=== PATIENT | male | born 1980 | race Caucasian/White ===

== ENCOUNTER 2020-02-10 10:39 | Inpatient (IN) | payer OTHER ==
[2020-02-10 11:13] VITALS: BMI 32.3
[2020-02-10] MEDS ORDERED: MENTHOL/PHENOL 1 EACH UD MM PRN (12:21)
[2020-02-10] MEDS ORDERED: MAG HYDROX/AL HYDROX/SIMETH 30 ML UNIT-DOSE CUP PO PRN (12:21)
[2020-02-10] MEDS ORDERED: ACETAMINOPHEN 325 MG TABLET (FP) PO PRN ×2 (12:21)
[2020-02-10] MEDS ORDERED: BISMUTH SUBSALICYLATE 262 MG/15 ML BTL PO PRN (12:21)
[2020-02-10] MEDS ORDERED: METHOCARBAMOL 500 MG TABLET PO PRN (12:21)
[2020-02-10] MEDS ORDERED: ONDANSETRON *ODT* 4 MG TABLET SL PRN (12:21)
[2020-02-10] MEDS ORDERED: MAGNESIUM HYDROX 2400MG/30ML ORAL SUSPENSION 30 ML CUP PO PRN (12:21)
[2020-02-10] MEDS ORDERED: MAGNESIUM CITRATE 300 ML BOTTLE PO PRN (12:21)
[2020-02-10] MEDS ORDERED: IBUPROFEN 400 MG TABLET (FP) PO PRN (12:21)
[2020-02-10] MEDS: chlordiazePOXIDE HCL 25 MG CAPSULE PO PRN (12:59)
[2020-02-10] MEDS: hydrOXYzine PAMOATE 25 MG CAPSULE (FP) PO SCH ×3 (13:02→22:05)
[2020-02-10 15:38] LABS: HEMATOCRIT 38.1 % (35.4-49); HEMOGLOBIN 12.7 GM/dL (11.7-16.9); MCH 29.8 pg (25.7-33.7); MCHC 33.4 g/dl (32.0-35.9); MEAN CELL VOLUME 89.3 fl (80-96); MEAN PLT VOLUME 9.6 fl (7.5-11.1); PLATELET COUNT 115 K/MM3 (134-434); RBC 4.27 M/mm3 (4.00-5.60); RDW 15.1 % (11.9-15.9); WHITE BLOOD COUNT 9.3 K/mm3 (4.0-10.0)
[2020-02-10 15:44] LABS: ALBUMIN 3.5 g/dl (3.4-5.0); BLOOD UREA NITROGEN 3.9 mg/dL (7-18)
[2020-02-10 15:49] LABS: CREATININE 0.8 mg/dL (0.55-1.3)
[2020-02-10 15:50] LABS: BILIRUBIN,TOTAL 1.7 mg/dL (0.2-1); TOT PROT 9.4 g/dl (6.4-8.2)
[2020-02-10] MEDS ORDERED: POTASSIUM CHLORIDE TABS 20 MEQ TABLET.ER (FP) PO ONE (16:42)
[2020-02-10] MEDS: chlordiazePOXIDE HCL 25 MG CAPSULE PO SCH ×2 (17:26→22:05)
[2020-02-10] MEDS: THIAMINE HCL 100 MG TABLET (FP) PO SCH (22:05)
[2020-02-10] MEDS: MELATONIN 5 MG TABLETS PO SCH (22:05)
[2020-02-11] MEDS: chlordiazePOXIDE HCL 25 MG CAPSULE PO SCH ×2 (05:10→10:13)
[2020-02-11] MEDS: hydrOXYzine PAMOATE 25 MG CAPSULE (FP) PO SCH ×5 (05:11→22:03)
[2020-02-11] MEDS: PRENATAL VITAMINS W/ FOLIC ACID TABLET (FP) PO SCH (10:13)
[2020-02-11] MEDS: chlordiazePOXIDE HCL 25 MG CAPSULE PO PRN (14:18)
[2020-02-11] MEDS ORDERED: LORazepam 1 MG TABLET PO PRN (15:33)
[2020-02-11] MEDS: POTASSIUM CHLORIDE ORAL LIQUID 20 MEQ/15 ML PO SCH ×2 (17:03→20:53)
[2020-02-11] MEDS: LORazepam 2 MG TABLET PO SCH ×2 (17:03→22:03)
[2020-02-11] MEDS: VITAMINS A AND D TOPICAL OINTMENT 60 GM TUBE TP SCH ×2 (18:00→22:02)
[2020-02-11] MEDS: MELATONIN 5 MG TABLETS PO SCH (22:03)
[2020-02-11] MEDS: THIAMINE HCL 100 MG TABLET (FP) PO SCH (22:03)
[2020-02-12] MEDS ORDERED: chlordiazePOXIDE HCL 25 MG CAPSULE PO SCH (05:00)
[2020-02-12] MEDS: hydrOXYzine PAMOATE 25 MG CAPSULE (FP) PO SCH ×5 (05:28→22:03)
[2020-02-12] MEDS: LORazepam 2 MG TABLET PO SCH ×4 (05:28→22:03)
[2020-02-12] MEDS: PRENATAL VITAMINS W/ FOLIC ACID TABLET (FP) PO SCH (10:04)
[2020-02-12] MEDS: VITAMINS A AND D TOPICAL OINTMENT 60 GM TUBE TP SCH ×4 (10:05→22:03)
[2020-02-12 10:10] LABS: POTASSIUM 3.7 mmol/L (3.5-5.1)
[2020-02-12] MEDS: MELATONIN 5 MG TABLETS PO SCH (22:03)
[2020-02-12] MEDS: THIAMINE HCL 100 MG TABLET (FP) PO SCH (22:03)
[2020-02-13] MEDS ORDERED: chlordiazePOXIDE HCL 10 MG CAPSULE PO PRN
[2020-02-13] MEDS ORDERED: chlordiazePOXIDE HCL 10 MG CAPSULE PO SCH (05:00)
[2020-02-13] MEDS: LORazepam 1 MG TABLET PO SCH ×4 (05:43→22:27)
[2020-02-13] MEDS: hydrOXYzine PAMOATE 25 MG CAPSULE (FP) PO SCH ×5 (05:43→22:27)
[2020-02-13] MEDS: PRENATAL VITAMINS W/ FOLIC ACID TABLET (FP) PO SCH (10:29)
[2020-02-13] MEDS: VITAMINS A AND D TOPICAL OINTMENT 60 GM TUBE TP SCH ×4 (10:31→22:27)
[2020-02-13] MEDS: THIAMINE HCL 100 MG TABLET (FP) PO SCH (22:26)
[2020-02-13] MEDS: MELATONIN 5 MG TABLETS PO SCH (22:27)
[2020-02-14] MEDS ORDERED: LORazepam 0.5 MG TABLET PO PRN
[2020-02-14] MEDS ORDERED: chlordiazePOXIDE HCL 10 MG CAPSULE PO SCH (05:00)
[2020-02-14] MEDS: hydrOXYzine PAMOATE 25 MG CAPSULE (FP) PO SCH ×6 (07:07→22:04)
[2020-02-14] MEDS: LORazepam 0.5 MG TABLET PO SCH ×5 (07:07→22:04)
[2020-02-14] MEDS: PRENATAL VITAMINS W/ FOLIC ACID TABLET (FP) PO SCH ×2 (10:32→10:48)
[2020-02-14] MEDS: VITAMINS A AND D TOPICAL OINTMENT 60 GM TUBE TP SCH ×4 (10:33→22:04)
[2020-02-14] MEDS ORDERED: BACITRACIN 0.9 GM PACKET TP ONE (12:47)
[2020-02-14] MEDS: THIAMINE HCL 100 MG TABLET (FP) PO SCH (22:04)
[2020-02-14] MEDS: MELATONIN 5 MG TABLETS PO SCH (22:05)
[2020-02-15] MEDS ORDERED: LORazepam 0.5 MG TABLET PO ONE (05:00)
[2020-02-15] MEDS ORDERED: chlordiazePOXIDE HCL 10 MG CAPSULE PO ONE (05:00)
[2020-02-15] MEDS: hydrOXYzine PAMOATE 25 MG CAPSULE (FP) PO SCH (05:18)
[2020-02-15 05:19] VITALS: TEMP 97.5
[2020-02-15 09:29] VITALS: BP 118/70; PULSE 99
[2020-02-15] MEDS ORDERED: BACITRACIN 0.9 GM PACKET TP SCH (10:00)
== END 2020-02-15 09:12 | disposition home or self-care (01) | DRG 775 ==
LOC: YASAS 10:39 → Y3N 11:53
PROVIDERS: ADMIT Allergy & Immunology; ATTEND Allergy & Immunology
PROC: HZ2ZZZZ Detoxification Services for Substance Abuse Treatment (ICD-10-PCS; principal; 2020-02-10)
DX: F10.230 Alcohol dependence with withdrawal, uncomplicated (principal); R73.9 Hyperglycemia, unspecified; R74.01 Elevation of levels of liver transaminase levels; S67.01XA Crushing injury of right thumb, initial encounter; W23.0XXA Caught, crushed, jammed, or pinched between moving objects, initial encounter; Y93.89 Activity, other specified; Y92.89 Other specified places as the place of occurrence of the external cause; Y99.8 Other external cause status; Z98.890 Other specified postprocedural states
CPT/HCPCS: 36415; 80053; 84132; 84450; 85027; 86780; 93005; 93010; C9803; U0003

== ENCOUNTER 2020-02-14 02:05 | Emergency (ER) | payer OTHER ==
[2020-02-14 02:28] VITALS: TEMP 98; BMI 32.3
[2020-02-14 03:45] LABS: BASO % 0.4 % (0-2.0); EOS % 4.4 % (0-4.5); HEMATOCRIT 35.3 % (35.4-49); HEMOGLOBIN 11.9 GM/dL (11.7-16.9); LYMPH % 20.3 % (8-40); MCH 30.6 pg (25.7-33.7); MCHC 33.7 g/dl (32.0-35.9); MEAN CELL VOLUME 90.8 fl (80-96); MEAN PLT VOLUME 9.1 fl (7.5-11.1); MONO % 10.7 % (3.8-10.2); NEUT % 64.2 % (42.8-82.8); PLATELET COUNT 95 K/MM3 (134-434); RBC 3.88 M/mm3 (4.00-5.60); RDW 14.8 % (11.9-15.9); WHITE BLOOD COUNT 8.9 K/mm3 (4.0-10.0)
[2020-02-14 03:53] LABS: INR 1.5 (0.83-1.09); PROTHROMBIN TIME (PATIENT) 18.2 SEC (9.7-13.0)
[2020-02-14 03:55] LABS: ACTIVATED PTT 41.2 SECONDS (25.2-36.5)
[2020-02-14 04:28] LABS: POTASSIUM 3.7 mmol/L (3.5-5.1)
[2020-02-14 04:30] LABS: BLOOD UREA NITROGEN 6.4 mg/dL (7-18); CALCIUM 8.6 mg/dL (8.5-10.1)
[2020-02-14 04:34] LABS: CREATININE 0.7 mg/dL (0.55-1.3)
[2020-02-14 05:21] VITALS: BP 119/70; PULSE 80
== END 2020-02-14 06:01 | disposition short-term general hospital (02) ==
LOC: JER 02:05
DX: S67.01XA Crushing injury of right thumb, initial encounter (principal)
CPT/HCPCS: 36415; 73110-TC-RT-FY; 73130-TC-RT-FY; 80048; 85025; 85610; 85730; 99284-25